=== PATIENT | male | born 1975 | race Hispanic/Latino ===

== ENCOUNTER 2024-04-29 07:34 | Emergency (ER) | payer SELFPAY ==
[~2024-04-29] VITALS: Ht 167.6 cm; Wt 92.5 kg
[2024-04-29 07:40] VITALS: PULSE 87; RESP 18; TEMP 97; O2SAT 97
[2024-04-29] MEDS: TETANUS/DIPHTHERIA TOX ADULT 0.5 ML SYR IM ONE (08:09)
[2024-04-29] MEDS ORDERED: SODIUM CHLORIDE 0.9% 100 ML ONE (08:44)
[2024-04-29] MEDS ORDERED: IOPAMIDOL 370 MG/ML 100 ML INFUS..BTL INJ ONE (08:44)
== END 2024-04-29 09:50 | disposition home or self-care (01) ==
LOC: FSED 07:40
DX: S00.83XA Contusion of other part of head, initial encounter (principal); V43.52XA Car driver injured in collision with other type car in traffic accident, initial encounter; Y92.488 Other paved roadways as the place of occurrence of the external cause; E11.65 Type 2 diabetes mellitus with hyperglycemia; F17.210 Nicotine dependence, cigarettes, uncomplicated
CPT/HCPCS: 71046; 71275; 80048; 85025; 90471; 90714; 99284; J7050; Q9967